=== PATIENT | female | born 1995 | race Caucasian/White ===

== ENCOUNTER 2019-05-29 10:17 | Emergency (ER) | payer BC ==
[2019-05-29 11:36] VITALS: BP 120/75
--- NOTE | 2019-05-29 11:58 | UC ---
Skin Complaint HPI - HPI Summary HPI Summary: Small dots on the tips of her fingers both hand that started 2 weeks ago. Pt denies pain or that it itches. of note she works at a [employer]. - History of Current Complaint Chief Complaint: [employer] Time Seen by Provider: 05/29/19 11:37 Stated Complaint: SKIN COMPLAINT Hx Last Menstrual Period: 05/08/19 Pain Intensity: 0 - Allergy/Home Medications Allergies/Adverse Reactions: Allergies Allergy/AdvReac Type Severity Reaction Status Date / Time No Known Allergies Allergy Verified 05/29/19 11:36 Home Medications: Home Medications Norethindrone AC-Eth Estradiol [Loestrin 1.5/30-21 1.5-30 mg-Mcg] 1 tab PO DAILY 05/29/19 [History Confirmed 05/29/19] PMH/Surg Hx/FS Hx/Imm Hx - Additional Past Medical History Additional PMH: no chronic illness Previously Healthy: Yes - Surgical History Surgical History: None - Family History Known Family History: Positive: Non-Contributory - Social History Alcohol Use: Occasionally Substance Use Type: None Smoking Status (MU): Never Smoked Tobacco Review of Systems All Other Systems Reviewed And Are Negative: Yes Constitutional: Negative: Fever, Chills, Fatigue Skin: Positive: Rash - fingers Respiratory: Negative: Shortness Of Breath, Cough Physical Exam Triage Information Reviewed: Yes Appearance: Well-Appearing Vital Signs: Initial Vital Signs Temp 98.8 F 05/29/19 11:31 Pulse 88 05/29/19 11:31 Resp 14 05/29/19 11:31 BP 120/75 05/29/19 11:31 Pulse Ox 98 05/29/19 11:31 Vital Signs Reviewed: Yes Respiratory: Positive: No respiratory distress Skin: Positive: Rashes - R index and middle have flat/common warts, very small. Course/Dx - Course Course Of Treatment: R middle two fingers have flat common warts. We disc ways to manage from home. No concerning other s/sx. - Differential Diagnoses - Skin Complaint Differential Diagnoses: Contact Dermatitis, Drug Rash, Tinea, Other - Diagnoses Provider Diagnosis: Common wart Discharge ED - Sign-Out/Discharge Documenting (check all that apply): Patient Departure All imaging exams completed and their final reports reviewed: No Studies - Discharge Plan Condition: Good Disposition: HOME Patient Education Materials: Common Wart (ED) Referrals: No Primary Care Phys,NOPCP [Primary Care Provider] - Additional Instructions: please see your primary care provider if worsening. - Billing Disposition and Condition Condition: GOOD Disposition: Home
== END 2019-05-29 12:10 | disposition home or self-care (01) ==
LOC: UCCORT 10:17
DX: B07.8 Other viral warts (principal)
CPT/HCPCS: 99201; G0463